=== PATIENT | female | born 1960 | race Caucasian/White ===

== ENCOUNTER 2020-06-24 07:56 | Day surgery (SDC) | payer MEDICARE ==
[2020-06-17 11:20] LABS: CLARITY,URINE SLIGHTLY CLOUDY (Clear); COLOR,URINE STRAW (Yellow); GLUCOSE, URINE NEGATIVE (Neg); KETONES,URINE NEGATIVE (Neg); LEUKOCYTE ESTERASE ,URINE NEGATIVE (Neg); NITRITES, URINE NEGATIVE (Neg); OCCULT BLOOD,URINE NEGATIVE (Neg); PROTEIN,URINE NEGATIVE (Neg); UROBILINOGEN,URINE 0.2 E.U/dL (0.2-1.0)
[2020-06-17 11:21] LABS: BASOPHILS % (AUTO) 0.3 % (0-1); EOSINOPHILS # (AUTO) 0.2 X10'3 (0-0.9); EOSINOPHILS % (AUTO) 2.9 % (0-6); LYMPHOCYTES # (AUTO) 2.5 X10'3 (1.1-4.8); LYMPHOCYTES % (AUTO) 31.3 % (21-51); MEAN CORPUSCULAR HEMOGLOBIN 30.3 PG (27.0-31.0); MEAN CORPUSCULAR HGB CONC 34.6 g/dL (33.0-36.5); MEAN CORPUSCULAR VOLUME 87.4 FL (78-98); MEAN PLATELET VOLUME 8.7 FL (7.4-10.4); MONOCYTES # (AUTO) 0.5 X10'3 (0-0.9); MONOCYTES % (AUTO) 6.5 % (2-12); NEUTROPHILS # (AUTO) 4.6 X10'3 (1.8-7.7); PRE OP HEMATOCRIT 41.9 % (35.0-45.0); PRE OP HEMOGLOBIN 14.5 g/dL (12.0-16.0); PRE OP PLATELET COUNT 266 X10'3 (140-440); RED CELL DISTRIBUTION WIDTH 14.2 % (11.5-14.5)
[2020-06-17 11:21] LABS: UA COLLECTION TYPE CLN CATCH MIDSTREAM
[2020-06-17 11:25] LABS: BACTERIA,URINE 1+ /HPF (Neg); MUCUS STRANDS NONE SEEN /LPF (Neg); RBC,URINE NONE SEEN /HPF (0-2); SQUAMOUS EPITHELIAL CELL,UR MODERATE /LPF (FEW); WBC,URINE 0-4 /HPF (0-4)
[2020-06-17 11:33] LABS: ALBUMIN 3.4 G/DL (3.4-5.0); ALBUMIN/GLOBULIN RATIO 0.8 (1.1-1.5); ALKALINE PHOSPHATASE 70 IU/L (46-116); BLOOD UREA NITROGEN 13 MG/DL (7-18); CALCIUM 9.8 MG/DL (8.5-10.1); CHLORIDE 102 MMOL/L (99-107); CREATININE 0.81 MG/DL (0.40-0.90); PRE OP ALT 25 U/L (30-65); PRE OP ANION GAP 7 (8-16); PRE OP AST 17 U/L (10-37); PRE OP BILIRUB, TOTAL 0.3 MG/DL (0.0-1.0); PRE OP GLUCOSE 178 MG/DL (70-104); PRE OP POTASSIUM 3.9 MMOL/L (3.4-5.1); PRE OP SODIUM 136 MMOL/L (135-145); TOTAL CARBON DIOXIDE 26.8 MMOL/L (24-32); TOTAL PROTEIN 7.7 G/DL (6.4-8.2); eGFR 72 ML/MIN
[~2020-06-24] VITALS: Ht 154.9 cm; Wt 90.7 kg
[2020-06-24] VITALS (8 sets, daily range): BP systolic 125–155; BP diastolic 76–98
[~2020-06-24 07:56] MED LIST: ASPI-611 PO; BACL10TA2 PO; CHOL10006 PO; IBUP-1984 PO; LISI-600 PO; METF-950 PO; OMEP-50 PO; ZOLP10TA PO; ceFAZolin 2gm in dextrose, iso 50 ML IV ONE; famotidine 20mg tablet PO ONE; ringers solution, lacted 1,000 ML IV SCH
[2020-06-24] MEDS ORDERED: acetaminophen 1,000mg/100ml IV 100 ML IV STA (09:11)
[2020-06-24] MEDS ORDERED: ROPIVAcaine 0.5% (5mg/ml) 30ml vial ONE (09:19)
[2020-06-24] MEDS ORDERED: bacitracin 15gm ointment TP ONE (09:19)
[2020-06-24] MEDS ORDERED: dexamethasone sod phosphate 10mg/ml inj ONE (10:43)
[2020-06-24] MEDS ORDERED: sevoflurane 250ml liquid IH ONE (10:43)
[2020-06-24] MEDS ORDERED: fentaNYL/PF 50MCG/1 ML 2ML syringe ONE (10:46)
[2020-06-24] MEDS ORDERED: MIDAZolam 5mg/5ml vial ONE (10:47)
[2020-06-24] MEDS ORDERED: ondansetron/PF 4mg/2ml inj ONE (11:05)
[2020-06-24] MEDS ORDERED: propofol inj 20 ML IV ONE (11:09)
[2020-06-24] MEDS ORDERED: LIDOcaine 2% (20mg/ml) 5ml vial ONE (11:09)
[2020-06-24] MEDS ORDERED: ringers solution, lacted 1,000 ML IV SCH (11:38)
[2020-06-24] MEDS ORDERED: hydrALAZINE 20mg/ml inj. IV PRN (11:40)
[2020-06-24] MEDS ORDERED: morphine 2 MG/ML inj. syringe IV PRN (11:40)
[2020-06-24] MEDS ORDERED: ondansetron/PF 4mg/2ml inj IV PRN (11:40)
[2020-06-24] MEDS ORDERED: morphine 4 MG/ML inj SYRINge IV PRN (11:40)
[2020-06-24] MEDS ORDERED: fentaNYL/PF 50MCG/1 ML 2ML syringe IV PRN ×2 (11:40)
[2020-06-24] MEDS ORDERED: enalaprilat dihydrate 2.5mg/2ml vial IV PRN (11:40)
[2020-06-24] MEDS ORDERED: labetalol 20mg/4ml (5mg/ml) syringe IV ONE (12:48)
--- NOTE | 2020-06-24 13:04 | NUR ---
Received from OR via [facility] , accompanied by Anesthesiologist REBECCA and report given by Anesthesiolgist. PATIENT WITH 20G PIV IN LEFT UE RUNNING LR AT 100. RIGHT FOOT SPLINT IN PLACE WITH TOES EXPOSED. + CAP REFILL AND NON SENSATION TO TOES. PWD. NO DRAINAGE TO DRESSING. 10L MASK ON WITH 96% SATURATIONS. Addendum: 06/24/20 at 1321 by Douglas Hernandez RN, RN Amended: Links added.
--- NOTE | 2020-06-24 13:14 | NUR ---
163 BLOOD GLUCOSE IN RR. Addendum: 06/24/20 at 1321 by Douglas Hernandez RN RN Amended: Links added.
--- NOTE | 2020-06-24 14:14 | NUR ---
PATIENT HAS MET ALL DC CRITERIA FOR DC HOME. I HAVE REVIEWED D/C INSTRUCTIONS WITH PATIENT AND FAMILY AND THEY HAVE VERBALIZED UNDERSTANDING, OPPORTUNITY TO ASK QUESTIONS GIVEN AND PATIENT COMFORTABLE WITH DC. IV TAKEN OUT WITHOUT COMPLICATION. OUT VIA WHEELCHAIR WHERE PATIENT WAS TAKEN HOME WITH ALL BELONGINGS. FAMILY GAVE PATIENT TRANSPORT HOME. PATIENTS SPOUSE PRESENT TO TAKE PATIENT HOME. Addendum: 06/24/20 at 1450 by Douglas Hernandez RN, RN Amended: Links added.
== END 2020-06-24 14:14 | disposition home or self-care (01) ==
LOC: PAS 07:56
PROVIDERS: ATTEND Podiatrist Foot & Ankle Surgery
DX: S92.333A Displaced fracture of third metatarsal bone, unspecified foot, initial encounter for closed fracture (principal); S92.323A Displaced fracture of second metatarsal bone, unspecified foot, initial encounter for closed fracture; S93.326A Dislocation of tarsometatarsal joint of unspecified foot, initial encounter; M79.671 Pain in right foot; S93.401A Sprain of unspecified ligament of right ankle, initial encounter; M19.071 Primary osteoarthritis, right ankle and foot; G89.18 Other acute postprocedural pain; K21.9 Gastro-esophageal reflux disease without esophagitis; E11.22 Type 2 diabetes mellitus with diabetic chronic kidney disease; I12.9 Hypertensive chronic kidney disease with stage 1 through stage 4 chronic kidney disease, or unspecified chronic kidney disease; N18.2 Chronic kidney disease, stage 2 (mild); M06.9 Rheumatoid arthritis, unspecified; Z79.899 Other long term (current) drug therapy; Z11.59 Encounter for screening for other viral diseases; Z79.82 Long term (current) use of aspirin; Z88.8 Allergy status to other drugs, medicaments and biological substances; Z91.040 Latex allergy status; Z98.890 Other specified postprocedural states; Z72.89 Other problems related to lifestyle; Z80.3 Family history of malignant neoplasm of breast
CPT/HCPCS: 20900; 28730; 36415; 64445; 64447; 73630; 76000; 80053; 81001; 82948; 85025; 87635; 93005; A6223; C1713; J0131; J1100; J2001; J2250; J2405; J2704; J3010; J7120; A4215; A4618; A6253; A6449; A7000; J2795; J3490